=== PATIENT | male | born 2000 | race Caucasian/White ===

== ENCOUNTER 2018-11-27 13:35 | Emergency (ER) | payer OTHER ==
[~2018-11-27] VITALS: Wt 170.0 kg
[~2018-11-27 13:35] MED LIST: CEPH-443 PO; IBUP-1561 PO; NAPR-985 PO
[2018-11-27 13:39] VITALS: BP 154/79; PULSE 79; RESP 18
[2018-11-27] MEDS ORDERED: KETOROLAC 60 MG INJ IM STA (14:42)
[2018-11-27] MEDS ORDERED: CYCL10TA7 PO (15:00)
[2018-11-27] MEDS ORDERED: IBUP800T48 PO (15:00)
--- NOTE | 2018-11-27 15:03 | ERD ---
ER Documentation Chief Complaint Chief Complaint LALO ARM PAIN X 2 WEEKS HPI 17-year-old male is here complaining of bilateral arm pain with paresthesias that is had for 2 weeks. Denies any injury or trauma. 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 He has had no fever. No history of anxiety. No chest pain palpitations or shortness of breath. Has appointment primary care but it is not for another 2 weeks. Took Motrin for a couple days without relief. ROS All systems reviewed and are negative except as per history of present illness. Medications Home Meds Active Scripts Cyclobenzaprine Hcl* (Cyclobenzaprine Hcl*) 10 Mg Tablet, 10 MG PO BID PRN for MUSCLE SPASMS, #20 TAB Prov:TITI LYONS PA-C 11/27/18 Ibuprofen* (Motrin*) 800 Mg Tab, 800 MG PO Q6, #30 TAB Prov:TITI LYONS PA-C 11/27/18 Naproxen* (Naprosyn*) 500 Mg Tablet, 500 MG PO BID PRN for PAIN AND/OR INFLAMMATION, #30 TAB Prov:BECCA SAGE PA-C 10/17/15 Ibuprofen* (Motrin*) 400 Mg Tab, 400 MG PO Q6, #30 TAB Prov:DAMASO URIAS 10/14/15 Cephalexin* (Keflex*) 500 Mg Capsule, 500 MG PO QID for 7 Days, CAP Prov:DAMASO URIAS 10/14/15 Allergies Allergies: Coded Allergies: No Known Allergy (Unverified , 10/14/15) PMhx/Soc Medical and Surgical Hx: pt denies Medical Hx, pt denies Surgical Hx Hx Alcohol Use: No Hx Substance Use: No Hx Tobacco Use: No FmHx Family History: No diabetes Physical Exam Vitals Vital Signs Date Temp Pulse Resp B/P (MAP) Pulse Ox O2 O2 Flow FiO2 Time Delivery Rate 11/27/18 98.1 79 18 154/79 99 13:39 (104) Physical Exam INITIAL VITAL SIGNS: Reviewed by me GENERAL: Awake, alert and oriented x 4, well appearing, nontoxic, speaking in full sentences. No acute distress HEAD: Atraumatic NECK: Supple. No masses. Full range of motion. No meningismus. No midline tenderness. RESPIRATORY: Clear to auscultation bilaterally. Symmetric chest wall rise. No wheezing or rales. No accessory muscle use. CV: Regular rate and rhythm. No murmurs, rubs, or gallops. EXTREMITIES: No clubbing or cyanosis. No edema. Moving all extremities normally. 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 Face is symmetric. Moves all extremities equally. Motor and sensory distally intact. Normal coordination. Ambulates with a strong steady gait. Results 24 hrs Laboratory Tests Test 11/27/18 14:49 Bedside Glucose 93 mg/dL Current Medications Medications Dose Sig/Ene Start Time Status Last (Trade) Ordered Route PRN Stop Time Admin Dose Reason Admin Ketorolac 60 mg ONCE STAT 11/27/18 DC 11/27/18 Tromethamine IM 14:42 11/27/18 14:51 (Toradol) 14:43 Procedures/MDM Patient has arm pain with paresthesias. Accu-Chek is normal. No trauma. He is neurovascularly intact. This is likely a radiculopathy. He was given Toradol here and discharged with ibuprofen and Flexeril. He does have upcoming appointment with primary care doctor. Patient counseled regarding my diagnostic impression and care plan. Prior to discharge all questions answered. Pt agrees with treatment plan and understands strict return precautions. Pt is instructed to follow up with primary care provider within 24-48 hours. Precautionary instructions provided including instructions to return to the ER if not improving or for any worsening or changing symptoms or concerns. Departure Diagnosis: Primary Impression: Cervical radiculopathy Condition: Stable Patient Instructions: Radiculopathy, Cervical Additional Instructions: Call your primary care doctor TOMORROW for an appointment during the next 1-2 days.See the doctor sooner or return here if your condition worsens before your appointment time. TITI LYONS PA-C November 27, 2018 15:03
== END 2018-11-27 15:07 | disposition home or self-care (01) ==
LOC: FTE 13:35
DX: M54.12 Radiculopathy, cervical region (principal)
CPT/HCPCS: 82962; 96372; J1885; Z7502